=== PATIENT | male | born 1980 | race Two or more races ===

== ENCOUNTER 2017-10-29 16:20 | Emergency (ER) | payer MEDICAID ==
[~2017-10-29] VITALS: Ht 175.3 cm; Wt 77.3 kg
[2017-10-29 16:42] VITALS: BP 115/81
[2017-10-29 17:41] LABS: URINE AMPHETAMINE SCREEN NEGATIVE (Neg); URINE BARBITUATE SCREEN NEGATIVE (Neg); URINE BENZODIAZEPINES SCREEN NEGATIVE (Neg); URINE CANNABINOID SCREEN POSITIVE (Neg); URINE COCAINE SCREEN NEGATIVE (Neg); URINE METHADONE SCREEN NEGATIVE (Neg); URINE OPIATE SCREEN NEGATIVE (Neg); URINE PHENCYCLIDINE SCREEN NEGATIVE (Neg)
== END 2017-10-29 17:59 | disposition home or self-care (01) ==
LOC: ER 16:22
DX: F12.929 Cannabis use, unspecified with intoxication, unspecified (principal); R51 Headache; R11.0 Nausea; R20.0 Anesthesia of skin; Z56.0 Unemployment, unspecified
CPT/HCPCS: 80305; 99283